=== PATIENT | female | born 1995 | race African-American/Black ===

== ENCOUNTER 2018-02-23 21:59 | Emergency (ER) | payer BC ==
[~2018-02-23] VITALS: Ht 160 cm; Wt 52.2 kg
[2018-02-23 21:59] VITALS: BP_SYST 136
[2018-02-23 23:05] VITALS: BP_SYST 132
== END 2018-02-23 23:05 | disposition home or self-care (01) ==
LOC: SED 21:59
DX: F45.8 Other somatoform disorders (principal); R03.0 Elevated blood-pressure reading, without diagnosis of hypertension
CPT/HCPCS: 71045; 93005; 99284

== ENCOUNTER 2018-06-23 19:56 | Emergency (ER) | payer BC, OTHER ==
[~2018-06-23] VITALS: Ht 160 cm; Wt 65.8 kg
[2018-06-23 20:01] VITALS: BP_SYST 114
[2018-06-23 20:19] LABS: BILIRUBIN,URINE NEGATIVE (NEGATIVE); BLOOD, URINE NEGATIVE (NEGATIVE); CLARITY/URINE CLEAR (CLEAR); GLUCOSE,URINE NEGATIVE (NEGATIVE); KETONES,URINE NEGATIVE (NEGATIVE); LEUKOCYTE ESTERASE ,URINE NEGATIVE (NEGATIVE); NITRITE, URINE NEGATIVE (NEGATIVE); PROTEIN URINE NEGATIVE (NEGATIVE); UROBILINOGEN,URINE 0.2 (0.2-1.0)
[2018-06-23 20:20] LABS: COLOR,URINE STRAW (YELLOW)
[2018-06-23] MEDS ORDERED: NACL 0.9% 1,000 ML IV ONE (20:45)
[2018-06-23] MEDS ORDERED: ONDANSETRON HCL 4 MG/2 ML VIAL IVP ONE (21:00)
[2018-06-23] MEDS ORDERED: MECLIZINE HCL 25 MG TABLET (ANITVERT) PO ONE (21:00)
[2018-06-23 21:08] LABS: BASOPHILS % (AUTO) 0.4 % (0.0-2.0); EOSINOPHILS # (AUTO) 0.1 K/uL (0.0-0.4); HEMATOCRIT 41.6 % (36-48); HEMOGLOBIN 13.4 g/dL (12.0-16.0); LYMPHOCYTES # (AUTO) 1.7 K/uL (1.0-5.5); LYMPHOCYTES % (AUTO) 19.9 % (20.5-51.5); MEAN CORPUSCULAR HEMOGLOBIN 30 pg (27-31); MEAN CORPUSCULAR HGB CONC 32 % (32-36); MEAN CORPUSCULAR VOLUME 92 fL (79.0-98.0); MONOCYTES # (AUTO) 0.5 K/uL (0.0-1.0); MONOCYTES % (AUTO) 5.5 % (1.7-9.3); NEUTROPHILS # (AUTO) 6.4 K/uL (1.8-7.7); NEUTROPHILS % (AUTO) 73.2 % (40.0-70.0); PLATELET COUNT (AUTO) 175 K/uL (130-430); RED BLOOD CELL COUNT(AUTO) 4.52 MIL/uL (4.2-6.2); RED CELL DISTRIBUTION WIDTH 12.4 % (9.0-15.0); WHITE BLOOD COUNT (AUTO) 8.7 K/uL (4.8-10.8)
[2018-06-23 21:14] LABS: CALCIUM 9.4 mg/dL (8.4-11.0); CREATININE 0.59 mg/dL (0.55-1.30)
[2018-06-23 21:20] LABS: ALBUMIN 3.8 g/dL (3.4-4.8); TOTAL BILIRUBIN 1.1 mg/dL (0.0-1.0)
[2018-06-23] MEDS ORDERED: LORazepam 2 MG/ML VIAL (FOR ER USE) IVP ONE (22:15)
[2018-06-23 23:47] VITALS: BP_SYST 122
== END 2018-06-23 23:47 | disposition home or self-care (01) ==
LOC: SED 19:56
DX: R42 Dizziness and giddiness (principal); F41.9 Anxiety disorder, unspecified
CPT/HCPCS: 36415; 70450; 71045; 80053; 81003; 81025; 84703; 85025; 93005; 96361; 96374; 96375; 99285; J2060; J2405; J7030; J8597